=== PATIENT | male | born 1965 | race Caucasian/White ===

== ENCOUNTER 2024-09-22 00:35 | Day surgery (SDC) | payer BC, SELFPAY ==
[2024-09-11 13:49] VITALS: BMI 21.2
--- OUTSIDE RECORDS SUMMARY | 2024-09-22 00:43 | XMS_ITS | Referral Summary ---
Author Organization 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
--- OUTSIDE RECORDS SUMMARY | 2024-09-22 00:43 | XMS_ITS | Clinical Summary ---
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 Gender Identity Not on file Sexual Orientation Not on file Plan of Treatment Health Maintenance Due Date Last Done Comments Colon Cancer Screening-Colonoscopy 1965 Depression Screening 1963 Hepatitis C Screening 1965 Prostate Cancer Screening-PSA 1963 DTaP/Tdap/Td Vaccine (1 - Tdap) 12/19/1974 Hepatitis B Screening 12/19/1981 Regular Well Visit/Exam 18-64 12/19/1981 Zoster Vaccine (1 of 2) 12/19/2013 Covid-19 Vaccine (4 - 2023-2 5 season) 2023 02/15/2021, 07/05/2020, 06/14/2020 Influenza Vaccine (Season Ended) 2024 02/15/2021, 02/26/2019 Pneumococcal vaccine <65 Aged Out No longer eligible based on patient's age to complete this topic Insurance [facility] [employer] Care Teams [employer] Worker Relationship Specialty Start Date End Date Unknown, Notinfile PCP - General 07/25/22
[2024-09-22 08:14] VITALS: BP 101/63; PULSE 80; RESP 16; TEMP 36.2; O2SAT 100; BMI 20.6
--- NOTE | 2024-09-22 08:16 | SUR.PREOP ---
Blood sugar checked by patients continuous glucose monitor. Blood sugar was 139.
[2024-09-22] MEDS: LACTATED RINGERS 1,000 ML 150 ML IV CONT (08:22)
--- NOTE | 2024-09-22 08:42 | WPDANESEPPF ---
Anes - Initial Pre Proc Eval Procedure: Operation Date: 09/22/24 09:30 Proposed Procedures p Screening Colonoscopy - Tong Sapp MD Date/Time: 09/22/24 08:42 Surgeon: Tong Sapp MD Pre Op Diagnosis: Encounter for screening for malignant neoplasm of Patient Data Age: 58 Gender: M Height: 1.91 m Weight: 74.8 kg Last Vital Signs Temp 36.2 C L 09/22/24 08:14 Pulse 80 09/22/24 08:14 Resp 16 09/22/24 08:14 BP 101/63 09/22/24 08:14 Pulse Ox 100 09/22/24 08:14 O2 Del Method Room Air 09/22/24 08:14 Allergies Allergy/AdvReac Type Severity Reaction Status Date / Time No Known Allergies Allergy Verified 09/22/24 08:13 Home Medications ?Medication ?Instructions ?Recorded ?Confirmed ?Type semaglutide 1 mg/dose (4 mg/3 mL) See Rx Instructions .Route 05/15/24 09/11/24 Rx subcutaneous pen injector (Ozempic) .COMPLEX #3 mL empagliflozin 25 mg-metformin ER 1 tablet PO DAILY 90 days #90 ea 06/11/24 09/11/24 Rx 1,000 mg tablet,extended release 24hr (Synjardy XR) escitalopram oxalate 20 mg tablet 20 mg PO DAILY #90 tabs 08/19/24 09/11/24 Rx blood-glucose sensor (FreeStyle #2 ea 09/30/24 Rx Mar 3 Plus Sensor device) Patient hx anesthesia problems: none Family hx anesthesia problems: none Results Review: All pre-operative results and documents have been reviewed as part of the pre-operative evaluation. [facility] Past Medical History Medical History (Updated 09/22/24 @ 08:57 by Tong Sapp MD) Colon cancer screening Rosacea Allergic rhinitis Hyperlipidemia, unspecified Type 2 diabetes mellitus with hyperglycemia Essential (primary) hypertension Anxiety with depression Surgical History Surgical History H/O vasectomy Family History Family History Father , Age 89 Heart disease Other Diabetes mellitus Social History Social History Smoking status: Former smoker Tobacco type: cigarettes Smoking end date: 04/22/10 Alcohol intake: current Substance use: never Lack of Transportation: No Lack of Food: Never True Current Housing: I Have Housing Concerned About Future Housing: No Difficulty Paying Gas/Electric Bills: No Difficulty Paying for Meds: No Currently Unemployed: No Education: Bachelor's Degree Difficulty w/ Childcare or Family Care: No Living arrangements: with family Occupation/Education: occupation Gender identity (if verbalized by the patient): Male Sexual Orientation (if Verbalized by the Patient): Straight or Heterosexual Spiritual care concerns: No Anes - Eval Final PreProcedure Day of Procedure 09/22/24 08:42 Patient weight: normal Heart: regular rate and rhythm Lungs: clear to auscultation and normal air movement Airway: Mallampati scale class II Neurological: alert and oriented Last oral intake: >/= 8 hours ASA classification: III Emergent: no Anesthetic plan: proceed Anesthesia type and monitoring: general GIVS and standard monitoring Results Review: All pre-operative results and documents have been reviewed as part of the pre-operative evaluation. Informed Consent: The patient's anesthetic plan and its attendant risks and benefits were discussed with the patient/family/POA. Questions were solicited and answers provided to the satisfaction of the patient/family/POA.
--- NOTE | 2024-09-22 08:56 | PM.HPGS ---
History of Present Illness History of Present Illness Consent: Risks, benefits, and alternatives have been discussed and questions answered. Patient agrees to proceed with procedure. Chief complaint: Encounter for screening for malignant neoplasm of Narrative: Enrique Aranda is a 58 year old male here for screening colonoscopy, last one 10 years ago Review of Systems Review of Systems: All systems reviewed & are unremarkable except as noted in HPI and below PMFSH Past Medical History Medical History (Updated 09/22/24 @ 08:57 by Tong Sapp MD) Colon cancer screening Rosacea Allergic rhinitis Hyperlipidemia, unspecified Type 2 diabetes mellitus with hyperglycemia Essential (primary) hypertension Anxiety with depression Surgical History Surgical History H/O vasectomy Family History Family History Father , Age 89 Heart disease Other Diabetes mellitus Social History Social History Smoking status: Former smoker Tobacco type: cigarettes Smoking end date: 04/22/10 Alcohol intake: current Substance use: never Lack of Transportation: No Lack of Food: Never True Current Housing: I Have Housing Concerned About Future Housing: No Difficulty Paying Gas/Electric Bills: No Difficulty Paying for Meds: No Currently Unemployed: No Education: Bachelor's Degree Difficulty w/ Childcare or Family Care: No Living arrangements: with family Occupation/Education: occupation Gender identity (if verbalized by the patient): Male Sexual Orientation (if Verbalized by the Patient): Straight or Heterosexual Spiritual care concerns: No Meds Home Medications and Allergies Home Medications ?Medication ?Instructions ?Recorded ?Confirmed ?Type semaglutide 1 mg/dose (4 mg/3 mL) See Rx Instructions .Route 05/15/24 09/11/24 Rx subcutaneous pen injector (Ozempic) .COMPLEX #3 mL empagliflozin 25 mg-metformin ER 1 tablet PO DAILY 90 days #90 ea 06/11/24 09/11/24 Rx 1,000 mg tablet,extended release 24hr (Synjardy XR) blood-glucose sensor (FreeStyle #1 ea 06/28/24 Rx Mar 3 Sensor device) escitalopram oxalate 20 mg tablet 20 mg PO DAILY #90 tabs 08/19/24 09/11/24 Rx Allergies Allergy/AdvReac Type Severity Reaction Status Date / Time No Known Allergies Allergy Verified 09/22/24 08:13 Vital Signs Vital Signs - 24 hr 09/22/24 08:14 Temperature 97.2 F L Pulse Rate 80 Respiratory Rate 16 Blood Pressure 101/63 Pulse Oximetry 100 Oxygen Delivery Room Air Exam Const: General: comfortable and no acute distress HENMT: Face/Nose/Sinus: Normal nares present Eyes: General: appearance normal, both eyes and all related structures Neck: Neck: no JVD Resp: Auscultation: clear to auscultation bilaterally Cardio: Rate: regular rate Rhythm: regular rhythm GI: Inspection: non-distended GI Palp: Yes Soft to palpation Skin: General skin exam: normal color Neuro: General: gait normal Speech: normal speech Extrem: General: normal to inspection Psych: Mental Status: mental status grossly normal Assessment and Plan Assessment and plan (1) Colon cancer screening: Code(s): Z12.11 - Encounter for screening for malignant neoplasm of colon Status: Acute Assessment and Plan: colonoscopy
[2024-09-22 09:09] VITALS: BP 98/58; PULSE 70; RESP 14; O2SAT 98
[2024-09-22 09:19] VITALS: BP 98/60; PULSE 67; RESP 13; O2SAT 98
[2024-09-22 09:29] VITALS: BP 109/64; PULSE 69; RESP 18; O2SAT 100
== END 2024-09-22 09:40 | disposition home or self-care (01) ==
PROVIDERS: PCP Family Medicine; Referring Provider Family Medicine; Visit Provider Internal Medicine Gastroenterology
PROC: 0DJD8ZZ Inspection of Lower Intestinal Tract, Via Natural or Artificial Opening Endoscopic (ICD-10-PCS; CPT 45378; principal; 2024-09-22 09:30)
DX: Z12.11 Encounter for screening for malignant neoplasm of colon (principal); K64.8 Other hemorrhoids; E78.5 Hyperlipidemia, unspecified; E11.65 Type 2 diabetes mellitus with hyperglycemia; I10 Essential (primary) hypertension; F41.8 Other specified anxiety disorders; Z79.84 Long term (current) use of oral hypoglycemic drugs; Z79.85 Long-term (current) use of injectable non-insulin antidiabetic drugs; Z98.890 Other specified postprocedural states; Z87.891 Personal history of nicotine dependence; Z82.49 Family history of ischemic heart disease and other diseases of the circulatory system
CPT/HCPCS: 45378; J2704; J7120